=== PATIENT | male | born 2000 | race Hispanic/Latino ===

== ENCOUNTER 2024-01-24 13:50 | Emergency (ER) | payer SELFPAY ==
[2024-01-24 13:54] VITALS: BP 108/79
--- NOTE | 2024-01-24 14:17 | ED.SKININJ ---
HPI-Injury
<Clifford Durham DO, Resident - Last Filed: 01/24/24 14:55>
General
Chief Complaint: Skin Surface Trauma
Source: patient
Time Seen by Provider: 01/24/24 14:12
History of Present Illness-Injury
Is this injury a work related problem?: No
Is pt an associate of [facility]/[place]?: No
Initial Injury comments:
Pt is a 23 YO M presenting to the ED with left index finger laceration. He states he was working at [employer] and accidentally cut through his glove. Initially reports a lot of bleeding, now stopped. He reports mild numbness around the area of the
incision and intact mobility. Last tetanus in 2019 per patient.
Review of Systems
<Clifford Durham DO, Resident - Last Filed: 01/24/24 14:55>
Review of Systems
Constitutional: Reports no symptoms
EENT: Reports no symptoms
Respiratory: Reports no symptoms
Cardiac: Reports no symptoms
ABD/GI: Reports no symptoms
: Reports no symptoms
Musculoskeletal: Reports other (L index finger laceration)
Neurological: Reports no symptoms
Endocrine: Reports no symptoms
Hematologic/Lymphatic: Reports bleeding
Skin Exam
<Clifford Durham DO, Resident - Last Filed: 01/24/24 14:55>
Laceration
Left Second Finger:
Length in cm: 3
Orientation: C shaped
Type of Laceration: simple
Any active bleeding?: no active bleeding
Distal skin color and temperature: normal-warm & good color
Range of motion: full (if move too much, wound will reopen)
Phy Exam
<Clifford Durham DO, Resident - Last Filed: 01/24/24 14:55>
General Physical Exam
General Presentation: well appearing
General age: appears stated age
General Skin: warm and dry
General Habitus: normal
General Mental: alert
General Hydration: appears well hydrated
Musculoskeletal Exam
Musculoskeletal Exam: full ROM
Skin Exam
Skin Exam: normal color and other (skin laceration L index finger)
Psychiatric Exam
Psychiatric Exam: normal mood/affect
Course
<Clifford Durham DO, Resident - Last Filed: 01/24/24 14:55>
Orders/Labs/Results
Orders:
Orders
01/24/24 14:33
CR Finger(s)/thumb Min 2 Vw Lt Urgent
Comment:
Reason For Exam: Left index finger laceration
01/24/24 16:27
Tetanus/Diphth/Acelpertussis [Adacel] 0.5 ml IM .ONCE ONE
Vital Signs
Initial and Last Documented VS:
Initial Vital Signs
Temp Pulse Resp BP Pulse Ox
98 F 79 16 108/79 98
01/24/24 13:54 01/24/24 13:54 01/24/24 13:54 01/24/24 13:54 01/24/24 13:54
Last Documented Vital Signs
Temp Pulse Resp BP Pulse Ox
98 F 79 16 108/79 98
01/24/24 13:54 01/24/24 13:54 01/24/24 13:54 01/24/24 13:54 01/24/24 13:54
<Peter Luther DO - Last Filed: 01/24/24 16:54>
Orders/Labs/Results
Orders:
Orders
01/24/24 14:33
CR Finger(s)/thumb Min 2 Vw Lt Urgent
Comment:
Reason For Exam: Left index finger laceration
01/24/24 16:27
Tetanus/Diphth/Acelpertussis [Adacel] 0.5 ml IM .ONCE ONE
Vital Signs
Initial and Last Documented VS:
Initial Vital Signs
Temp Pulse Resp BP Pulse Ox
98 F 79 16 108/79 98
01/24/24 13:54 01/24/24 13:54 01/24/24 13:54 01/24/24 13:54 01/24/24 13:54
Last Documented Vital Signs
Temp Pulse Resp BP Pulse Ox
98 F 79 16 108/79 98
01/24/24 13:54 01/24/24 13:54 01/24/24 13:54 01/24/24 13:54 01/24/24 13:54
Procedures
Marielt;Peter Luther DO - Last Filed: 01/24/24 16:54>
Laceration Closure
Left Distal Second Finger:
Status of Wound: clean
Size of Wound in cm: 1
Description of Wound Edges: sharp
Preparation: cleaned with saline and cleaned with Betadine
Anesthesia: Digital-Regional
Revision/Debridement: routine- no revision
Wound exploration: explored to base- no FB
Type of Closure: single layer closure
Skin Closure Material: 5-0 vicryl
Number of sutures: 7
Additional information:
Laceration did extend into the nailbed. However now left intact to heal by secondary intention. Remainder of the laceration closed nicely.
<Clifford Durham DO, Resident - Last Filed: 01/24/24 14:55>
MDM/Problems Addressed
Differential Diagnosis Includes:
finger laceration
MDM/Problems Addressed:
Pt is a 23 YO M presenting to ED with Left index finger laceration. Finger Xrays ordered. Finger block and sutures completed to close wound. No tetanus shot needed, pt is UTD.
Chronic conditions affecting care:
NA
Acute Exacerbation and/or Progression of Chronic Illness:
NA
<Clifford Durham DO, Resident - Last Filed: 01/24/24 14:55>
*Pulse Oximetry
Patient hypoxic: no
*EKG
Interpreted by ED Provider?: NA
*Wardrobe Image Consultant Interpretation
Rate: Wardrobe Image Consultant- N/A
*Critical Care Note
Total Time (30-74mins, 75-104mins- exclusive of procedures): Not Applicable
ED Attending Note
<Clifford Durham DO, Resident - Last Filed: 01/24/24 14:55>
-
Portions of this chart may have been created with voice recognition software.� Occasional wrong word or��sound alike� substitutions may have occurred due to the inherent limitations of voice recognition software.
Discharge Plan
Departure
Patient Disposition: Home (Routine Discharge)
Date of Disposition: 01/24/24
Time of Disposition: 16:27
Patient with high blood pressure during this ER visit?: No
Condition: Good
Discharge Problem:
Laceration of finger
Instructions: Laceration Repair With Stitches (DC)
Referrals:
NONE,* [Family Provider] -
Zeus Hodge MD [Active] -
Stand Alone Forms: Return to Work
Activity Restrictions/Additional Instructions:
Stitches should be removed in 7 days. Return to the emergency room for any signs of infection such as significant increasing redness, purulent discharge or increasing pain. You may be required to see a doctor through your employer's Workmen's
Comp. however I have given you the contact information for one of our hand doctors in case you have any issues.
Interventions
Interventions:
*Risk Screen - Suicide Last Done: 01/24/24 13:54
*General Assessment Last Done: 01/24/24 13:54
*Neglect/Abuse Screening Last Done: 01/24/24 13:54
ED- Fall Risk Assessment Last Done: 01/24/24 14:38
*ED COVID-19 Vaccine History Last Done: 01/24/24 14:00
ED-Skin Assessment Last Done: 01/24/24 14:38
Discharge Date and Time
Print Language: VIETNAMESE
[2024-01-24 14:38] VITALS: BMI 22.3
[2024-01-24] MEDS: ADACEL 0.5 ML IM (16:44)
[2024-01-24 16:50] VITALS: BP 97/47
--- NOTE | 2024-01-24 17:00 | EDRN ---
Reviewed discharge instructions with the patient. Verbalized understanding. Ambulated with steady gait to [facility].
== END 2024-01-24 16:55 | disposition home or self-care (01) ==
LOC: EMR 13:50
PROVIDERS: EMERGENCY PHYSICIAN Emergency Medicine
DX: S61.311A Laceration without foreign body of left index finger with damage to nail, initial encounter (principal); W26.0XXA Contact with knife, initial encounter; Y99.0 Civilian activity done for income or pay; Z23 Encounter for immunization
CPT/HCPCS: 99283; 12001; 90471; 73140; 90715

== ENCOUNTER 2024-11-03 12:11 | Emergency (ER) | payer BC, SELFPAY ==
[2024-11-03 12:17] VITALS: BP 137/76
[2024-11-03 12:42] LABS: % Basophils 0.8 % (0-2); % Immature Granulocytes 0.1 % (0-0.5); % Lymphocytes 40.6 % (20.5-51.1); % Monocytes 8.6 % (1.7-9.3); % Neutrophils 47.9 % (42.2-75.2); Absolute Basophils 0.1 10^3/uL (0-0.2); Absolute Eosinophils 0.2 10^3/uL (0-0.7); Absolute Lymphocytes 3.9 10^3/uL (1.2-3.4); Absolute Monocytes 0.8 10^3/uL (0.1-0.6); Absolute Neutrophils 4.5 10^3/uL (1.4-6.5); Hematocrit 41.7 % (39.0-52.0); Hemoglobin 14.1 g/dL (13.0-18.0); Mean Corp Hgb Conc. 33.8 g/dL (33.0-37.0); Mean Corpuscular Hgb 31.3 pg (27.0-31.0); Mean Corpuscular Volume 92.5 fL (80.0-94.0); Mean Platelet Volume 11.4 fL (7.4-10.4); Nucleated Red Blood Cells % 0 % (-); Platelet Count 265 10^3/uL (130-400); Red Blood Cell Count 4.51 10^6/uL (4.70-6.10); Red Cell Dist. Width 14.2 % (11.5-14.5); White Blood Cell Count 9.5 10^3/uL (4.8-10.8)
[2024-11-03 12:56] LABS: ALT (SGPT) 22 U/L (0-50); AST (SGOT) 26 U/L (17-59); Albumin 4.9 g/dl (3.5-5.0); Alkaline Phosphatase 63 U/L (38-126); Blood Urea Nitrogen 15 mg/dl (9-20); Calcium 9.8 mg/dl (8.4-10.2); Carbon Dioxide 29 mmol/L (22-30); Chloride 103 mmol/L (98-107); Glucose 69 mg/dl (70-99); Potassium 4.5 mmol/L (3.5-5.1); Sodium 142 mmol/L (135-145); Total Bilirubin 0.6 mg/dl (0.2-1.3); Total Protein 7.7 g/dl (6.3-8.2); eGFR > 60.00
[2024-11-03 13:06] LABS: Troponin I < 0.012 ng/ml
[2024-11-03 13:09] VITALS: BMI 23.7
[2024-11-03 13:10] VITALS: BP 118/69
--- NOTE | 2024-11-03 13:50 | ED.GENMED ---
History of Present Illness
General
Chief Complaint: Chest Pain
Source: patient
Time Seen by Provider: 11/03/24 13:00
History of Present Illness
History of Present Illness:
23-year-old male with no significant past medical history presenting to the emergency department for evaluation after he has been experiencing intermittent chest discomfort for the last 5 months, pain described to be very random, occurs with or
without exercise, does seem to be worse when standing, sharp, will last for a few minutes and then resolve spontaneously, sometimes patient will not experience the pain throughout the day. Minimal change to the symptoms although patient notes that
this morning it did seem to be a little bit worse which is why he decided to come to the ER today. Has never had any previous evaluations for the chest pain in the past. Family history was noted for patient's father having hypertension and he
believes his paternal grandfather also had a history of an [place]. No history of sudden cardiac or cardiomyopathy. No other concerns.
Past History
Past History
ED Past Medical History: Psychiatric
ED Past Surgical History: None
Social History
Tobacco: Vaping
Alcohol: Occasional
Drug: Marijuana
Personal: Single
Living: with family
Review of Systems
Review of Systems
All Other Systems: ROS reviewed and negative except as documented in HPI and ROS
Phy Exam
Physical Exam
Physical Exam:
GENERAL: Alert , in no apparent distress
HEAD: NCAT
EYE: clear conjunctiva
NECK: Supple
ENT: o/p clr, mmm.
CARDIAC: Regular rate and rhythm, no murmur .
LUNGS: Clear breath sounds bilaterally, no acute respiratory distress, no wheezes/rales/rhonchi, reproducible chest wall tenderness of left lateral sternum
ABDOMEN: Soft, without focal tenderness, no r/g, no cvat
NEUROLOGICAL: Alert and oriented
SKIN: Warm and dry, skin intact.
MUSCULOSKELETAL: No edema, well perfused.
PSYCH: Normal and appropriate interaction.
Scores
Heart Failure Risk
Heart Failure Risk Score: Not Applicable
Heart Score for Chest Pain Patients
STEMI patient?: No
History: Slightly or Non-Suspicious
ECG: Normal
Age: </= 45 years
Risk Factors: 1 or 2 Risk Factors
Troponin: </= Normal Limit
Heart Score for Chest Pain Patients: 1
Heart Score Risk: 2.5% MACE over next 6 weeks
Withdrawal Assessment of Alcohol
Withdrawal Assessment Completed?: Not applicable
Course
Orders/Labs/Results
Orders:
Orders
11/03/24 12:12
Electrocardiogram (*1) Urgent
Reason for Study: Chest Pain
EKG- Treatment ONCE
11/03/24 12:23
Comprehensive Metabolic Panel Urgent
11/03/24 12:24
Complete Blood Count/With Diff Urgent
Troponin I Urgent
11/03/24 13:01
CR Chest - 2 Views Urgent
Comment:
Reason For Exam: chest pain
Abnormal Lab Results
11/03/24 11/03/24
12:23 12:24
RBC 4.51 L 10^6/uL
(4.70-6.10)
MCH 31.3 H pg
(27.0-31.0)
MPV 11.4 H fL
(7.4-10.4)
Absolute Lymphs (auto) 3.9 H 10^3/uL
(1.2-3.4)
Absolute Monos (auto) 0.8 H 10^3/uL
(0.1-0.6)
Glucose 69 L mg/dl
(70-99)
11/03/24 12:24
11/03/24 12:23
Vital Signs
Initial and Last Documented VS:
Initial Vital Signs
Temp Pulse BP Pulse Ox
98.7 F 72 137/76 100
11/03/24 12:17 11/03/24 12:17 11/03/24 12:17 11/03/24 12:17
Last Documented Vital Signs
Temp Pulse Resp BP Pulse Ox
98.7 F 69 16 118/69 100
11/03/24 12:17 11/03/24 13:15 11/03/24 13:15 11/03/24 13:10 11/03/24 13:15
MDM/Problems Addressed
Differential Diagnosis Includes:
Musculoskeletal chest wall pain, pleurisy, PE, pneumothorax, pericarditis/myocarditis, I do not have concern for ACS
MDM/Problems Addressed:
23-year-old male presenting to the emergency department for evaluation of chest pain that has been waxing and waning for the last 5 months, overall unchanged today. Patient is hemodynamically stable and in no acute distress. Chest wall pain is
reproducible making my suspicion for muscular etiology more likely. Patient's only risk factor for ACS would be family history. He does note that he vapes marijuana multiple times per day. Workup initiated on arrival is overall reassuring. EKG
nonischemic. Will add on a chest x-ray to workup with anticipation that patient will need just continued outpatient follow-up. Will refer to cardiology for outpatient visit.
*Radiology
Radiology exam reviewed: preliminary read by ED provider (Normal chest x-ray)
*Pulse Oximetry
Patient hypoxic: no
*EKG
Comparison EKG: no comparison EKG present
Heart Rate: 75
Rate: normal
Rhythm: sinus
Ischemia: no ischemia
*Fuel Operator Interpretation
Rate: normal
Rhythm: sinus
*Critical Care Note
Total Time (30-74mins, 75-104mins- exclusive of procedures): Not Applicable
Patient Management
Escalation/DeEscalation of care consider admission/obs:
Patient stable for d/c home. Information for cardiology provided. Aware of return precautions
ED Attending Note
-
Portions of this chart may have been created with voice recognition software.� Occasional wrong word or��sound alike� substitutions may have occurred due to the inherent limitations of voice recognition software.
Discharge Plan
Departure
Patient Disposition: Home (Routine Discharge)
Date of Disposition: 11/03/24
Time of Disposition: 14:00
Patient with high blood pressure during this ER visit?: No
Discharge Problem:
Chest pain
Instructions: Chest Pain That Is Not Caused by the Heart (DC)
Referrals:
Mani Renner MD [Active] - (Cardiology - Call for appointment)
Stand Alone Forms: Return to Work
Interventions
Interventions:
*Risk Screen - Suicide Last Done: 11/03/24 12:19
*General Assessment Last Done: 11/03/24 12:19
*Neglect/Abuse Screening Last Done: 11/03/24 12:19
*ED- Fall Risk Assessment Last Done: 11/03/24 13:09
*ED COVID-19 Vaccine History Last Done: 11/03/24 12:19
*Nursing Disposition Last Done: 11/03/24 14:08
ED- Cardiac Assessment Last Done: 11/03/24 13:09
Discharge Date and Time
Discharge Date/Time: 11/03/24 14:37
Print Language: LATVIAN
== END 2024-11-03 14:37 | disposition home or self-care (01) ==
LOC: EMR 12:11
PROVIDERS: Emergency Medicine; EMERGENCY PHYSICIAN Emergency Medicine
DX: R07.89 Other chest pain (principal); F17.290 Nicotine dependence, other tobacco product, uncomplicated
CPT/HCPCS: 99285; 71046; 80053; 84484; 85025; 93005